=== PATIENT | male | born 1980 ===

== ENCOUNTER 2016-08-28 20:18 | Emergency (ER) | payer SELFPAY ==
[2016-08-28 20:30] VITALS: BP 148/60; TEMP 99.8; O2SAT 99
[2016-08-28] MEDS ORDERED: MORPHINE SULFATE INJ 10 MG/ML VIAL IM ONE (20:30)
--- NOTE | 2016-08-28 20:31 | ED.PDOC ---
History of Present Illness - General Chief Complaint: Lower Extremity Injury Time Seen by Provider: 08/28/16 20:30 Source: patient - History of Present Illness Initial Comments: Alan Purcell 35 y/o male stated he stepped on a [place] thorn this afternoon wearing his boots but still went thru and thru which got embedded on his right foot initially seen at [facility] and thorn was taken out was prescribed antibiotics but no pain medication he was then brought here with severe pain.right foot Occurred: this afternoon Pain - Lower Extremity: moderate: Right Foot Method of Injury: other - punctured wound Improving Factors: nothing Worsening Factors: movement Allergies/Adverse Reactions: Allergies NO KNOWN ALLERGY Allergy (Verified 08/28/16 20:23) Home Medications: Ambulatory Orders Acetamin W/Cod #3 Tab [Tylenol w/CODEINE #3] 2 ea PO TID PRN #30 tab 08/28/16 Review of Systems - Review of Systems Constitutional: States: no symptoms reported EENTM: States: no symptoms reported Respiratory: States: no symptoms reported Cardiology: States: no symptoms reported Gastrointestinal/Abdominal: States: no symptoms reported Genitourinary: States: no symptoms reported Musculoskeletal: States: no symptoms reported Skin: States: see HPI Neurological: States: no symptoms reported Endocrine: States: no symptoms reported Past Medical History (General) - Patient Medical History Hx Seizures: No Hx Stroke: No Hx Dementia: No Hx Asthma: No Hx of COPD: No Hx Cardiac Disorders: No Hx Congestive Heart Failure: No Hx Pacemaker: No Hx Hypertension: No Hx Thyroid Disease: No Hx Diabetes: No Hx Gastroesophageal Reflux: No Hx Renal Disease: No Hx Cancer: No Hx of HIV: No Hx Hepatitis C: No Hx MRSA: No - Vaccination History Hx Tetanus, Diphtheria Vaccination: Yes Hx Influenza Vaccination: Yes Hx Pneumococcal Vaccination: Yes Immunizations Up to Date: Yes - Social History Hx Tobacco Use: No - Activities of Daily Living Hospice Agency (if applicable):: None Family Medical History - Family History Father Family History: No Known Living Status: Still Living Hx Cardiac Disease: Yes - CABG Physical Exam - Physical Exam General Appearance: Alert, No apparent distress Eyes, Ears, Nose, Throat: PERRL/EOMI, normal ENT inspection, TMs normal, pharynx normal Neck: non-tender, full range of motion, supple, normal inspection Cardiovascular/Respiratory: regular rate, rhythm, no M/R/G, normal peripheral pulses, no JVD, normal breath sounds Gastrointestinal/Abdominal: non-tender, no organomegaly Back: normal inspection, no CVA tenderness Thigh/Hip: normal inspection, non-tender, no evidence of injury Leg: normal inspection, non-tender Knee: normal inspection Ankle: normal inspection Foot: soft tissue tenderness, other - punctured wound right foot Progress - EKG/XRAY/CT XRAY: foot right no residual foreign body as per radiologist Departure - Departure Clinical Impression: Open puncture wound Pain in foot Qualifiers: Laterality: right Qualified Code(s): M79.671 - Pain in right foot Time of Disposition: 22:52 Disposition: Discharge to Home or Self Care Condition: Good Departure Forms: ED Discharge - Pt. Copy, Patient Portal Self Enrollment Prescriptions: Acetamin W/Cod #3 Tab [Tylenol w/CODEINE #3] 2 ea PO TID PRN #30 tab PRN Reason: Pain Home Medications: Ambulatory Orders Acetamin W/Cod #3 Tab [Tylenol w/CODEINE #3] 2 ea PO TID PRN #30 tab 08/28/16 Additional Instructions: ELEVATE RIGHT FOOT 20 degrees bedtime until better;Continue with cipro and bactrim
--- NOTE | 2016-08-28 21:02 | RAD ---
EXAM DESCRIPTION: Foot,Right 3 Views CLINICAL HISTORY: STICK WAS IMPALED IN RIGHT FOOT POST REMOVAL COMPARISON: None. FINDINGS: AP, lateral and oblique views of the right foot were submitted. There is no discrete acute fracture or dislocation. Bone mineralization is within normal limits. There is no radiopaque foreign body material. IMPRESSION: No acute fracture or dislocation. Electronically signed by: Charles Hopson MD 08/28/2016 9:01 PM CDT
[2016-08-28] MEDS ORDERED: NEOMYCIN-BACITRACIN-POLYMYXIN 0.9 GM UD TOP ONE (22:38)
[2016-08-28] MEDS ORDERED: HYDROCOD/APAP 10/325 (ER DISP) # 3 tablets PO ONE (22:55)
== END 2016-08-28 23:36 | disposition home or self-care (01) ==
LOC: ER 20:18
DX: S91.331A Puncture wound without foreign body, right foot, initial encounter (principal); W22.8XXA Striking against or struck by other objects, initial encounter
CPT/HCPCS: 73630; J2270